=== PATIENT | female | born 1975 | race Two or more races ===

== ENCOUNTER → 2024-03-26 | Outpatient (CLI) | payer OTHER, BC, SELFPAY | END | disposition home or self-care (01) | LOC: SLDO 12:29 | PROVIDERS: PCP Nurse Practitioner Family; Referring Provider Nurse Practitioner Family; Visit Provider Nurse Practitioner Family | DX: N39.0 Urinary tract infection, site not specified (principal) | CPT/HCPCS: 87086 ==

== ENCOUNTER → 2024-04-18 | Outpatient (CLI) | payer OTHER, BC, SELFPAY ==
[2024-04-18 16:12] LABS: Collection Type, Urine Clean Catch
[2024-04-18 17:55] LABS: Bacteria,Urine Rare; Bilirubin,Urine Negative (Negative); Blood,Urine 1+ (Negative); Clarity,Urine Clear (Clear/Hazy); Color,Urine Yellow (Lt Yel-Yel); Glucose, Urine Negative (Negative); Hyaline Casts,Urine < 1 /hpf (0-1); Ketones,Urine Negative (Negative); Leukocyte Esterase,Urine Positive (Negative); Nitrite,Urine Negative (Negative); PH,Urine 5.5 (5.0-7.0); Protein,Urine Negative (Neg - Trace); RBC,Urine 5 /hpf (0-3); Specific Gravity,Urine 1.019 (1.001-1.035); Squamous Epithelial Cell,Urine 2 /hpf (0-5); Urobilinogen,Urine Negative mg/dL (0.0-1.0); WBC,Urine 2 /hpf (0-5)
== END | disposition home or self-care (01) ==
LOC: SLDO 15:48
PROVIDERS: PCP Registered Nurse; Referring Provider Registered Nurse; Visit Provider Registered Nurse
DX: N39.0 Urinary tract infection, site not specified (principal)
CPT/HCPCS: 81001; 87086

== ENCOUNTER → 2024-07-26 | Outpatient (CLI) | payer OTHER, BC, SELFPAY ==
[2024-07-26 15:33] LABS: Glucose Estimated Average 105 mg/dL (80-131); Hemoglobin A1C 5.3 % Hgb (4.8-6.0)
[2024-07-26 15:45] LABS: Alanine Aminotransferase 28 U/L (10-49); Albumin, Serum 4.4 gm/dL (3.5-5.0); Albumin/Globulin Ratio 1.6 (1.2-2.2); Alkaline Phosphatase 73 U/L (46-116); Anion Gap 6 (7-16); Aspartate Amino Transferase 13 U/L (0-34); BUN/Creatinine Ratio 15 Ratio (12-20); Bilirubin,Total 0.8 mg/dL (0.3-1.2); Blood Urea Nitrogen 12 mg/dL (9-23); Calcium 9.4 mg/dL (8.3-10.6); Calcium (Corrected) 9.4 mg/dL (8.5-10.1); Carbon Dioxide 28.7 mMol/L (20.0-31.0); Chloride 103 mMol/L (98-107); Creatinine (Component) 0.8 mg/dL (0.6-1.3); Globulin 2.8 gm/dL (2.3-3.5); Glucose 91 mg/dL (74-106); Osmolality,Calculated 275 (275-295); Potassium 3.8 mMol/L (3.4-5.1); Sodium 138 mMol/L (136-145); Total Protein 7.2 gm/dL (5.7-8.2); eGFR > 60 See Note
[2024-07-26 17:42] LABS: Creatinine MALB Rnd Ur 136 mg/dL (30-125); Microalbumin Creat Ratio 3 mg/gCrea (<30); Microalbumin, Random Urine 4 mg/L (0-300)
== END | disposition home or self-care (01) ==
LOC: COPL 14:38
PROVIDERS: PCP Family Medicine; Referring Provider Registered Nurse; Visit Provider Registered Nurse
DX: E11.9 Type 2 diabetes mellitus without complications (principal)
CPT/HCPCS: 36415; 80053; 82043; 82570; 83036

== ENCOUNTER → 2024-08-13 | Outpatient (CLI) | payer OTHER, BC, SELFPAY ==
--- NOTE | 2024-08-13 10:30 | XR_ITS ---
Examination: Breast ultrasound complete, bilateral Date and time of exam: August 13, 2024 1022 hrs. Indications: Mammogram March 2024 13 mm nodule outer left breast, left breast sonogram June 08, 2023 12:00 nodule 16 mm 12:00 nodule 4 mm Technique: Real-time grayscale ultrasonographic imaging bilateral breasts, including all 4 quadrants as well as nipple retroareolar and axillary regions. Findings: Sonographic images right breast 11:00 nodule lobular margins 3 x 2 mm Sonographic images left breast 12:00 nodule circumscribed 15 x 12 mm Nodule circumscribed 4 x 4 millimeter 1:00 irregular nodule lobular margins 9 x 7 mm Probably benign left axillary lymph nodes Impression: BI-RADS Category 3: Probably benign findings One additional 6 month left breast sonogram follow-up is needed to document stability of left breast nodules and left axillary lymph nodes
--- NOTE | 2024-08-13 11:30 | XR_ITS ---
Examination: Screening digital mammography, bilateral Computer aided detection 3-D breast Tomosynthesis, bilateral Date and time of exam: 11/19/2024, 10:55 AM Comparisons: April 2018 through March 2024 Indications: Screening Technique: Nonmagnified MLO, CC views of the breasts to been obtained, reconstructed from 3-D Tomosynthesis images. R2 computer aided detection program utilized for evaluation of suspicious masses and/or abnormal calcifications. 3-D Tomosynthesis images obtained. Technologist: Findings: There are scattered areas of fibroglandular density. Subpectoral saline implants appear intact. No evidence of abnormal masses or suspicious calcifications. Impression: BI-RADS category 2: Benign findings Recommend 1 year follow-up mammogram
== END | disposition home or self-care (01) ==
PROVIDERS: PCP Registered Nurse; Referring Provider Registered Nurse; Visit Provider Registered Nurse
DX: Z12.31 Encounter for screening mammogram for malignant neoplasm of breast (principal); R92.323 Mammographic fibroglandular density, bilateral breasts; N63.25 Unspecified lump in the left breast, overlapping quadrants; N63.21 Unspecified lump in the left breast, upper outer quadrant; N63.11 Unspecified lump in the right breast, upper outer quadrant
CPT/HCPCS: 76641; 77063; 77067

== ENCOUNTER → 2025-03-28 | Outpatient (CLI) | payer OTHER, BC, SELFPAY ==
--- NOTE | 2025-03-28 10:00 | XR_ITS ---
Examination: Breast ultrasound, unilateral, left Date and time of exam: March 28, 2025, 0951 hours INDICATIONS: Left breast 12:00 nodule 15 x 12 mm on ultrasound August 13, 2024 Technique: Real-time kuo scale ultrasonographic imaging performed left breast including all 4 quadrants as well as nipple retroareolar and axillary region. Findings: 12:00 nodule lobular margins 13 x 12 mm 12:00 nodule lobular margins 4 x 3 mm 1:00 nodule lobular margins 5 x 6 mm For 3.7 cm axillary lymph node IMPRESSION: BI-RADS Category 3: Probably benign findings Recommend 6-month left breast sonogram follow-up to document stability of multiple solid nodules described above
[2025-03-28 10:28] LABS: Glucose Estimated Average 114 mg/dL (80-131); Hemoglobin A1C 5.6 % Hgb (4.8-6.0)
[2025-03-28 10:33] LABS: Alanine Aminotransferase 27 U/L (10-49); Albumin, Serum 5.1 gm/dL (3.5-5.0); Albumin/Globulin Ratio 2.0 (1.2-2.2); Alkaline Phosphatase 75 U/L (46-116); Anion Gap 7 (7-16); Aspartate Amino Transferase 25 U/L (0-34); BUN/Creatinine Ratio 16 Ratio (12-20); Bilirubin,Total 0.8 mg/dL (0.3-1.2); Blood Urea Nitrogen 11 mg/dL (9-23); Calcium 9.4 mg/dL (8.3-10.6); Calcium (Corrected) 9.4 mg/dL (8.5-10.1); Carbon Dioxide 27.9 mMol/L (20.0-31.0); Chloride 105 mMol/L (98-107); Creatinine (Component) 0.7 mg/dL (0.6-1.3); Globulin 2.6 gm/dL (2.3-3.5); Glucose 83 mg/dL (74-106); Osmolality,Calculated 277 (275-295); Potassium 4.2 mMol/L (3.4-5.1); Sodium 140 mMol/L (136-145); Total Protein 7.7 gm/dL (5.7-8.2); eGFR > 60 See Note
== END | disposition home or self-care (01) ==
LOC: CDIM 09:19 → COPL 09:30
PROVIDERS: PCP Family Medicine; Referring Provider Registered Nurse; Visit Provider Radiology Diagnostic Radiology
DX: N63.20 Unspecified lump in the left breast, unspecified quadrant (principal); E11.9 Type 2 diabetes mellitus without complications
CPT/HCPCS: 36415; 76641; 80053; 83036